=== PATIENT | male | born 1940 | race Caucasian/White ===

== ENCOUNTER → 2017-04-19 | Outpatient (CLI) | payer MEDICARE, OTHER ==
[~2017-04-19] MED LIST: IOPAMIDOL 370 MG/ML 200 ML INFUS..BTL INJ ONE; SODIUM CHLORIDE 0.9% 50ML 50 ML ONE
[2017-04-19 12:11] LABS: BLOOD UREA NITROGEN 11 mg/dL (7-26); BUN/CREATININE RATIO 10 (6-25); CREATININE, SERUM 1.12 mg/dL (0.72-1.25); EST GLOMERULAR FILTRATION RATE > 60 ML/MIN (60-)
--- NOTE | 2017-04-19 13:32 | Diagnostic Imaging Report ---
EXAM: CTA Abdomen and Pelvis WITH CONTRAST. DATE: 04/19/2017 11:13 AM INDICATION: COMPARISON: None TECHNIQUE: CT angiogram of the abdomen and pelvis was obtained after the administration of IV contrast. Prospective gating was performed. Images reviewed in the axial, coronal, and sagittal planes. 3D reconstructions performed on off-line workstation. IV Contrast: 100 mL Isovue-370. Total DLP: 789 mGy*cm Est. Eff. Dose DLP x 0.015 x size factor mSv (CTDIvol has been reviewed and is below limits set by [facility]). FINDINGS: VASCULAR: Abdominal Aorta Mesenteric Segment: 27 mm. Abdominal Aorta Just Below Renal Arteries: 26 mm. Mid Infrarenal Abdominal Aorta: 70 mm. Abdominal Aortal at Bifurcation: 23 mm. Mesenteric Arteries: Celiac trunk, SMA, single bilateral renal arteries widely patent. Aneurysm: Fusiform aneurysm beginning approximately 44 mm below right renal artery and extending over a length of 67 mm terminating 15 mm above bifurcation. There is moderate mural plaque along the anterior aspect. RCIA: 13 mm. LCIA: 14 mm. Internal Iliac Arteries: Mild atherosclerotic change, but patent. Abdomen: Lung Bases: Calcified pleural plaque and basilar scarring. Solid Organs: No acute findings. Upper GI Tract: Gastric decompression limits evaluation. No small bowel obstructive changes. Lymph Nodes: No suspicious adenopathy. Other: None. Pelvis: Bladder: Decompressed, limiting evaluation. Other: Prostate 68 mm transverse diameter. Penile prosthesis and reservoir partially visualized. Colon: Colonic decompression limits evaluation. Bones: Degenerative changes spine. IMPRESSION: 1. Fusiform infrarenal abdominal aortic aneurysm with maximal diameter of 70 mm. Other measurements as above. 2. 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 Signed by: Dr. Terry Rodriges MD on 04/19/2017 1:29 PM
== END ==
LOC: CT 10:40
PROVIDERS: ATTEND Internal Medicine Interventional Cardiology
DX: I71.4 Abdominal aortic aneurysm, without rupture (principal)
CPT/HCPCS: 36415; 74174; 82565; 84520; Q9967

== ENCOUNTER → 2018-11-06 | Outpatient (CLI) | payer MEDICARE, OTHER ==
--- NOTE | 2018-11-06 09:12 | Diagnostic Imaging Report ---
CT of the chest, without contrast. History: Asbestos exposure, dyspnea. Comparison: CTA abdomen/pelvis from 04/19/2017. Technique: Multidetector CT scanning of the chest was performed from the level of the apices to the upper abdomen without contrast. Coronal and sagittal multiplanar reformations were obtained. RADIATION DOSE: Total DLP: 534.96 mGy*cm Dose modulation, iterative reconstruction, and/or weight based adjustment of the mA/kV was utilized to reduce the radiation dose to as low as reasonably achievable. FINDINGS: The visualized structures within the base of the neck demonstrate no significant abnormalities. Atherosclerotic calcifications noted within the thoracic aorta and branch vessels including the coronary arteries. Presumed coronary stents noted. The heart is not enlarged. There is a trace, likely physiologic amount of pericardial fluid present. There are multiple normal to mildly prominent mediastinal lymph nodes present, nonspecific. There is no abnormal axillary or hilar lymph node enlargement. The trachea and proximal airways are patent. There are extensive bilateral calcified pleural plaques suggestive of prior stenosis exposure. There is bibasilar atelectasis. There is an approximately 1.1 cm groundglass opacity identified within the right upper lobe (axial image 32). There is no evidence for consolidation, pneumothorax, mass, or pleural effusion. The visualized upper abdominal contents demonstrate no significant abnormalities. There are degenerative changes of the visualized spine. Postsurgical changes from median sternotomy noted. Sternal fragments are not yet united. The osseous structures otherwise. No evidence for acute fracture or destructive process. IMPRESSION: 1. Bilateral calcified pleural plaques identified compatible with prior asbestos exposure. 2. Solitary 1.1 cm groundglass opacity identified within the right upper lobe. Recommend CT follow up examination in 6-12 months to confirm persistence/stability. 3. Atherosclerosis and coronary artery disease. Signed by: Dr. Aaron Dillard MD on 11/06/2018 9:09 AM
== END ==
LOC: CT 07:16
PROVIDERS: ATTEND Internal Medicine Critical Care Medicine
DX: R06.00 Dyspnea, unspecified (principal); Z77.090 Contact with and (suspected) exposure to asbestos
CPT/HCPCS: 71250

== ENCOUNTER → 2019-04-08 | Outpatient (CLI) | payer MEDICARE, OTHER ==
--- NOTE | 2019-04-08 15:34 | Diagnostic Imaging Report ---
EXAMINATION: CT scan of the chest without contrast. TECHNIQUE: Spiral CT images of the chest were performed from the lung apices to the level of the adrenal glands. No intravenous contrast was administered per referring physician request. Coronal and sagittal reformatted images were obtained. COMPARISON: CT chest without contrast 11/06/2018 CLINICAL HISTORY:Pulmonary nodule DISCUSSION: ABSENCE OF INTRAVENOUS CONTRAST DECREASES SENSITIVITY FOR DETECTION OF FOCAL LESIONS AND VASCULAR PATHOLOGY. LINES/TUBES: None. LUNGS AND AIRWAYS: When accounting for differences in technique and slice selection, no appreciable interval change in the previously described 10-11 mm groundglass nodule in the posterior right upper lobe. Bandlike fibrotic changes with extension to the thickened pleura in the lung bases right greater than left is without significant interval change. The trachea, mainstem bronchi, and central lobar and segmental bronchi are patent. PLEURA: Multiple calcified pleural plaques with associated neural thickening, stable compared to prior examination. HEART AND MEDIASTINUM: Visualized portions of the thyroid gland are unremarkable. Postsurgical changes of median sternotomy and coronary artery bypass. Atherosclerotic calcification of the [place] coronary arteries. Borderline ectasia of the ascending thoracic aorta (3.9 cm). Incidental note of a common origin of the innominate and left common carotid artery from the aortic arch. Marked tortuosity of the great vessel origins. Pulmonary outflow tract is of normal caliber. No pericardial effusion. Multiple mildly prominent mediastinal lymph nodes are unchanged compared to prior. No new mediastinal or hilar lymphadenopathy. LYMPH NODES: There is no mediastinal, hilar or axillary lymphadenopathy. ABDOMEN: Visualized portions of the liver, spleen, pancreas, adrenals, and kidneys are unremarkable. BONES AND SOFT TISSUES: No osseous destructive lesions. No focal soft tissue abnormalities. IMPRESSION: No appreciable interval change in the previously described 1.1 cm groundglass nodule in the right upper lobe. An additional CT of the chest in 6-12 months is suggested to confirm continued stability. Stable findings of asbestos related pleural disease. 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 Signed by: Dr. Israel Lawrence M.D. on 04/08/2019 3:31 PM
== END ==
LOC: CT 13:54
PROVIDERS: ATTEND Internal Medicine Critical Care Medicine
DX: R91.8 Other nonspecific abnormal finding of lung field (principal)
CPT/HCPCS: 71250